=== PATIENT | male | born 1950 | race Caucasian/White ===

== ENCOUNTER 2021-08-26 17:41 | Emergency (ER) | payer MEDICARE, OTHER ==
[~2021-08-26] VITALS: Ht 180.3 cm; Wt 102.3 kg
[2021-08-26] MEDS ORDERED: PERTUSS(ACELL),DIPH,TET VAC/PF 0.5 ML SYRINGE IM. ONE (20:00)
[2021-08-26] MEDS ORDERED: LIDOCAINE 1% 10 ML VIAL PERC ONE (20:45)
[2021-08-26] MEDS ORDERED: CEPHALEXIN MONOHYDRATE 500 MG CAPSULE PO ONE (21:00)
[2021-08-26] MEDS ORDERED: BACITRACIN ZINC/POLYMYXIN B 14.2 GM OINTMENT TP ONE (22:00)
[2021-08-26 22:02] VITALS: BP 140/87
[2021-08-26] MEDS ORDERED: CEPH-558 PO (22:20)
[2021-08-27] MEDS ORDERED: CEPH-558 PO (15:23)
== END 2021-08-26 23:42 | disposition home or self-care (01) ==
LOC: EMS 17:44
DX: S62.636A Displaced fracture of distal phalanx of right little finger, initial encounter for closed fracture (principal); E78.00 Pure hypercholesterolemia, unspecified; W23.0XXA Caught, crushed, jammed, or pinched between moving objects, initial encounter; Y93.89 Activity, other specified; Y92.89 Other specified places as the place of occurrence of the external cause; Y99.8 Other external cause status
CPT/HCPCS: 99283; 73140; 90715; 90471; 12001; J3490